=== PATIENT | male | born 1965 | race Caucasian/White ===

== ENCOUNTER 2017-03-23 22:39 | Emergency (ER) | payer SELFPAY ==
[2017-03-24] MEDS: LIDOCAINE 2% JELLY 30 ML TOP (03:02)
[2017-03-24] MEDS: LIDOCAINE 2% VISC 15 ML CUP PO (03:02)
[2017-03-24] MEDS: LIDOCAINE 2% JELLY 5 ML TOP (03:28)
[2017-03-24] MEDS: morphine 10 MG INJ IM (03:28)
[2017-03-24] MEDS: KETOROLAC 60 MG INJ IM (03:28)
== END 2017-03-24 05:19 | disposition home or self-care (01) ==
LOC: FTE 22:39
DX: K64.4 Residual hemorrhoidal skin tags (principal)
CPT/HCPCS: 96372; 99284-25; J1885